=== PATIENT | male | born 1975 | race Caucasian/White ===

== ENCOUNTER 2021-03-29 04:49 | Emergency (ER) | payer SELFPAY ==
[2021-03-29 05:35] LABS: HEMOGLOBIN 15.9 gm/dl (14.0-17.5); RED BLOOD COUNT 5.22 M/UL (4.20-5.50); WHITE BLOOD COUNT 8.4 K/UL (4.5-11.0)
[2021-03-29 05:46] LABS: BUN/CREATININE RATIO 16 (0-10)
[2021-03-29] MEDS ORDERED: ZOFRAN4 MG PO (08:01)
[2021-03-29] MEDS ORDERED: TORADOL 10 MG T10 MG PO (08:01)
[2021-03-29] MEDS ORDERED: GLUCOPHAGE 500500 MG PO (08:01)
[2021-03-29] MEDS ORDERED: FLOMAX0.4 MG PO (08:01)
== END 2021-03-29 08:15 | disposition home or self-care (01) ==
LOC: ER1 04:49
PROVIDERS: Physician Assistant Medical
DX: N13.2 Hydronephrosis with renal and ureteral calculous obstruction (principal); Z87.442 Personal history of urinary calculi; E11.9 Type 2 diabetes mellitus without complications; R79.89 Other specified abnormal findings of blood chemistry
CPT/HCPCS: 80053; 81001; 83690; 85025; 96374; 96375; 99284; J1885; J2405